=== PATIENT | female | born 1990 | race African-American/Black ===

== ENCOUNTER 2024-10-31 12:49 | Emergency (ER) | payer BC, MEDICAID ==
[~2024-10-31] VITALS: Ht 160 cm; Wt 53.6 kg
[2024-10-31] MEDS ORDERED: LANTINJ4 SC (13:02)
[2024-10-31] MEDS ORDERED: HUMA100I3 SUBQ (13:02)
[2024-10-31] MEDS ORDERED: FLUO40CA PO (13:02)
[2024-10-31] MEDS: ONDANSETRON 4MG 2ML VIAL IV ONE (13:54)
[2024-10-31] MEDS: NS (Normal Saline) 0.9% 1,000 ML IV ONE (13:54)
[2024-10-31] MEDS: MORPHINE 2 MG/ML 1 ML VIAL IV PRN (13:56)
[2024-10-31 13:57] LABS: BASO # 0.0 10^3/uL (0.0-0.2); BASO % 0.5 % (0.0-1.0); EOS # 0.0 10^3/uL (0.0-0.5); EOS % 0.2 % (0.0-3.0); LYMPH # 1.1 10^3/uL (1.5-5.0); LYMPH % 13.0 % (24.0-44.0); MONO # 0.7 10^3/uL (0.0-0.8); MONO % 7.9 % (2.0-8.0); NEUTROPHILS # 6.6 10^3/uL (1.5-8.5); NEUTROPHILS % 77.9 % (36.0-66.0); PLATELET COUNT, AUTOMATED 315 10^3/uL (150-450)
[2024-10-31 14:19] LABS: CALCIUM LEVEL 8.6 MG/DL (8.5-10.1); CARBON DIOXIDE LEVEL 23 MMOL/L (20-31); CHLORIDE LEVEL 102 MMOL/L (98-107); CREATININE FOR GFR 0.76 MG/DL (0.55-1.30); GLOMERULAR FILTRATION RATE > 90.0 (>60); POTASSIUM SERUM 3.5 MMOL/L (3.5-5.1); SODIUM LEVEL 138 MMOL/L (136-145)
[2024-10-31 14:39] LABS: HCG, SERUM QUALITATIVE NEGATIVE (NEGATIVE)
[2024-10-31 15:17] LABS: KETONE, URINE AUTO RFX TRACE mg/dL (NEGATIVE); LEUKOCYTE ESTERASE UR AUTO RFX 2+ (NEGATIVE); MUCUS, URINE RFX SMALL (NEGATIVE); NITRITE, URINE AUTO RFX NEGATIVE (NEGATIVE); RBC, URINE AUTO RFX 142 /HPF (0-3); SQUAM EPITHELIAL CELL UR AURFX 4 /HPF (0-6); TRANSITIONAL EPITHELIAL AU RFX 1 /HPF
[2024-10-31 15:18] LABS: WBC, URINE AUTO RFX TNTC /HPF (0-3)
[2024-10-31] MEDS: cefTRIAXone SOD 1 GM in DEXTROSE 5% (D5W) ADV/MINI-BAG 50 ML IV ONE (16:20)
[2024-10-31] MEDS ORDERED: IBUP200C28 PO (17:03)
[2024-10-31] MEDS ORDERED: HOME MED LIST COMPLETE! XX SCH (17:05)
[2024-10-31] MEDS ORDERED: CEFD1CAP9 PO (18:59)
[2024-10-31 20:19] VITALS: BP 149/82; TEMP 98.8; O2SAT 97
== END 2024-10-31 20:21 | disposition home or self-care (01) ==
LOC: M ED 12:49
DX: N10 Acute pyelonephritis (principal); E10.9 Type 1 diabetes mellitus without complications; Z88.6 Allergy status to analgesic agent; Z91.018 Allergy to other foods; Z79.2 Long term (current) use of antibiotics; Z79.1 Long term (current) use of non-steroidal anti-inflammatories (NSAID); Z79.4 Long term (current) use of insulin
CPT/HCPCS: 74176; 80048; 81001; 84703; 85025; 87086; 96374; 96375; 99283; J0696; J2405

== ENCOUNTER 2025-02-06 19:37 | Emergency (ER) | payer BC ==
[~2025-02-06] VITALS: Ht 160 cm; Wt 54.5 kg
[~2025-02-06 19:37] MED LIST: CEFD1CAP9 PO; FLUO40CA PO; HUMA100I3 SUBQ; IBUP200C28 PO; LANTINJ4 SC
[2025-02-06] MEDS ORDERED: DEXTROSE 50% 50 ML SYRINGE As Ordered ONE (20:02)
[2025-02-06] MEDS: DEXTROSE 50% 50 ML SYRINGE IV STA ×2 (20:06→21:12)
[2025-02-06 20:17] LABS: BASO # 0.1 10^3/uL (0.0-0.2); BASO % 0.7 % (0.0-1.0); EOS # 0.6 10^3/uL (0.0-0.5); EOS % 5.7 % (0.0-3.0); LYMPH # 1.9 10^3/uL (1.5-5.0); LYMPH % 18.3 % (24.0-44.0); MONO # 1.0 10^3/uL (0.0-0.8); MONO % 9.0 % (2.0-8.0); NEUTROPHILS # 7.0 10^3/uL (1.5-8.5); NEUTROPHILS % 66.1 % (36.0-66.0); PLATELET COUNT, AUTOMATED 508 10^3/uL (150-450)
[2025-02-06 20:40] LABS: ALT/SGPT 32 U/L (7.0-40); AST/SGOT 81 U/L (<34); CALCIUM LEVEL 8.6 MG/DL (8.5-10.1); CARBON DIOXIDE LEVEL 20 MMOL/L (20-31); CHLORIDE LEVEL 108 MMOL/L (98-107); CREATININE FOR GFR 0.68 MG/DL (0.55-1.30); GLOMERULAR FILTRATION RATE > 90.0 (>60); MAGNESIUM LEVEL 1.9 MG/DL (1.8-2.4); PHOSPHORUS LEVEL 3.9 MG/DL (2.5-4.9); POTASSIUM SERUM 5.4 MMOL/L (3.5-5.1); SODIUM LEVEL 141 MMOL/L (136-145)
[2025-02-06] MEDS: D5W/0.45% SODIUM CHLORIDE 1,000 ML IV SCH (21:12)
[2025-02-07] MEDS ORDERED: GLUCMIS7 XX (00:12)
[2025-02-07] MEDS ORDERED: FREEMIS42 TOP (00:12)
[2025-02-07 01:00] VITALS: BP 136/83; TEMP 97.4; O2SAT 99
== END 2025-02-07 01:23 | disposition home or self-care (01) ==
LOC: M ED 19:37
DX: E10.649 Type 1 diabetes mellitus with hypoglycemia without coma (principal); G40.89 Other seizures; Z88.6 Allergy status to analgesic agent; Z91.018 Allergy to other foods; Z91.09 Other allergy status, other than to drugs and biological substances; Z79.2 Long term (current) use of antibiotics; Z79.4 Long term (current) use of insulin; Z79.899 Other long term (current) drug therapy